=== PATIENT | male | born 1985 | race Two or more races ===

== ENCOUNTER → 2023-01-24 | Emergency (ER) | payer SELFPAY ==
[~2023-01-24] VITALS: Ht 180.3 cm; Wt 109.4 kg
[~2023-01-24] MED LIST: KETOROLAC TROMETH 30 MG/ML 1ML VIAL IM ONE; NITR-87 PO; TAM04C PO; cefTRIAXone SOD 1,000 MG VL IM ONE
[2023-01-24 01:45] LABS: Basophils # (auto) 0.1 10 ^3/uL (0-0.2); Basophils % (auto) 0.9 % (0.0-2.0); Eosinophils # (auto) 0.2 10 ^3/uL (0-0.8); Eosinophils % (auto) 1.3 % (0.0-7.0); Hematocrit 41.5 % (41.0-53.0); Hemoglobin 14.9 g/dL (13.5-17.5); Lymphocytes # (auto) 1.6 10 ^3/uL (0.4-5.4); Lymphocytes % (auto) 13.3 % (10.0-50.0); Mean Corpuscular Hemoglobin 31.9 pg (28.0-32.0); Mean Corpuscular Hgb Conc. 35.9 g/dL (32.0-36.0); Mean Corpuscular Volume 88.6 fL (80.0-100.0); Monocytes # (auto) 0.9 10 ^3/uL (0-1.3); Monocytes % (auto) 7.5 % (0.0-12.0); Neutrophils # (auto) 9.5 10 ^3/uL (1.6-8.6); Nucleated Red Blood Cells % 0.1 %; Red Blood Cells 4.68 10^6/uL (4.5-5.90); Red Cell Distribution Width 12.4 % (11.8-14.3); White Blood Cell 12.3 10^3/uL (4.4-10.8)
[2023-01-24 02:03] LABS: Albumin 3.8 g/dL (3.4-5.0); BUN/Creatinine Ratio 15.2; Calcium 8.9 mg/dL (8.5-10.1)
[2023-01-24 02:04] LABS: Urine Bacteria FEW /hpf (None Seen); Urine Blood 1+ /uL (Negative); Urine Budding Yeast FEW /hpf (None Seen); Urine Specific Gravity 1.007 (1.001-1.035); Urine WBC 84 /hpf (0 - 3); Urine WBC Clumps PRESENT /hpf (None Seen)
[2023-01-24 02:05] LABS: Bilirubin, Total 1.1 mg/dL (0.2-1.0); Total Protein 7.8 g/dL (6.4-8.2)
[2023-01-24 03:45] VITALS: BP 135/73
== END | disposition home or self-care (01) ==
LOC: ER 00:25
DX: N20.0 Calculus of kidney (principal); N39.0 Urinary tract infection, site not specified
CPT/HCPCS: 36415; 74176; 80053; 81001; 85025; 96372; 99285; J0696; J1885